=== PATIENT | male | born 1945 | race Hispanic/Latino ===

== ENCOUNTER 2021-04-15 08:46 | Outpatient (CLI) | payer MEDICARE ==
[2021-04-15 09:40] LABS: Blood Urea Nitrogen 13 mg/dL (9-20)
--- NOTE | 2021-04-15 10:51 | Cat Scan Report ---
CTA ABDOMEN AND PELVIS (AORTIC ANEURYSM) INDICATION / CLINICAL INFORMATION: AORTA ANEURYSM OMNI 350 1OO ML. TECHNIQUE: Axial CT images were obtained through the abdomen and pelvis after injection of 100 cc IV contrast. 3 plane MIP and/or 3D reconstructions were produced. All CT scans at this location are perf ormed using CT dose reduction for ALARA by means of automated exposure control. COMPARISON: None available. FINDINGS: ABDOMINAL AORTA: - Dissection: No dissection. - Aneurysm: Infrarenal AAA containing mural thrombus measures a maximum of 4.2 cm in diameter on shanon nal image 47. - Atherosclerosis: Mild atherosclerosis. CELIAC TRUNK: No significant abnormality. SUPERIOR MESENTERIC ARTERY: No significant abnormality. RENAL ARTERIES: No significant abnormality. Small accessory left renal artery is noted. INFERIOR MESENTERIC ARTERY: No significant abnormality. RIGHT ILIAC ARTERIES: No acute abnormality. No significant atherosclerosis. LEFT ILIAC ARTERIES: No acute abnormality. No significant atherosclerosis. RIGHT FEMORAL ARTERIES: No acute abnormality. No significant atherosclerosis. LEFT FEMORAL ARTERIES: No acute abnormality. No significant atherosclerosis. ABDOMINOPELVIC VEINS: Single IVC of normal caliber to the right of midline. No significant abnormalit y. ADDITIONAL ABDOMINOPELVIC FINDINGS: Mild diverticulosis of the colon is noted. No acute inflammation. The remaining abdominal and pelvic viscera are unremarkable. No adenopathy, free fluid, free air or fluid collection. The lung bases are clear. SKELETAL SYSTEM: Moderate multilevel thoracolumbar spondylosis. Osteopenia. IMPRESSION: 4.2 cm infrarenal AAA as described. No evidence for stenosis or dissection. Diverticulosis of the colon. Signer Name: Eren Cardoza Jr, MD Signed: 04/15/2021 10:46 AM Workstation Name: [id number]
== END 2021-04-15 08:47 | disposition home or self-care (01) ==
LOC: CT 08:46
PROVIDERS: ATTEND Internal Medicine
DX: K57.30 Diverticulosis of large intestine without perforation or abscess without bleeding (principal); I71.4 Abdominal aortic aneurysm, without rupture; I70.0 Atherosclerosis of aorta; M47.815 Spondylosis without myelopathy or radiculopathy, thoracolumbar region; M85.88 Other specified disorders of bone density and structure, other site
CPT/HCPCS: 36415; 74174; 82565; 84520; Q9967